=== PATIENT | male | born 1995 | race Caucasian/White ===

== ENCOUNTER → 2020-11-30 | Outpatient (REF) | payer OTHER ==
[~2020-11-30] MED LIST: LEXA1TAB PO; TRAZ-252 PO
== END ==
LOC: M LAB REF 09:27
PROVIDERS: ATTEND Surgery
DX: U07.1 COVID-19 (principal)

== ENCOUNTER 2024-03-09 02:18 | Emergency (ER) | payer OTHER, SELFPAY ==
[~2024-03-09] VITALS: Ht 175.3 cm; Wt 56.8 kg
[2024-03-09 02:27] VITALS: BP 191/105; TEMP 98.4; O2SAT 99
== END 2024-03-09 08:26 | disposition left against medical advice (07) ==
LOC: M ED 02:18 → EDBD 02:18 → M ED 08:26
DX: Z53.21 Procedure and treatment not carried out due to patient leaving prior to being seen by health care provider (principal)

== ENCOUNTER 2024-03-22 01:38 | Emergency (ER) | payer SELFPAY ==
[~2024-03-22] VITALS: Ht 167.6 cm; Wt 73.0 kg
[2024-03-22 01:39] VITALS: BP 141/86; TEMP 97.2; O2SAT 99
== END 2024-03-22 02:35 | disposition left against medical advice (07) ==
LOC: M ED 01:38
DX: Z53.21 Procedure and treatment not carried out due to patient leaving prior to being seen by health care provider (principal)

== ENCOUNTER → 2024-04-06 | Outpatient (CLI) | payer SELFPAY | LOC: M SOG 07:51 | PROVIDERS: ATTEND Physician Assistant | DX: M79.644 Pain in right finger(s) (principal) ==

== ENCOUNTER → 2024-04-13 | Outpatient (CLI) | payer OTHER, SELFPAY ==
[~2024-04-13] MED LIST changes: +CEPH500C PO
== END ==
LOC: M SOG 07:24
PROVIDERS: ATTEND Physician Assistant
DX: M79.644 Pain in right finger(s) (principal)

== ENCOUNTER 2024-04-21 06:11 | Inpatient (IN) | payer OTHER ==
[~2024-04-21] VITALS: Ht 175.3 cm; Wt 77.8 kg
[2024-04-21] VITALS (8 sets, daily range): BP systolic 120–150; BP diastolic 55–83; TEMP 96.7–97.9; O2SAT 97–98
[2024-04-21] MEDS ORDERED: ACETAMINOPHEN 1000MG 100ML IV BAG As Ordered ONE (06:51)
[2024-04-21] MEDS ORDERED: propofoL 200 MG/20 ML VIAL As Ordered ONE (06:51)
[2024-04-21] MEDS ORDERED: LIDOCAINE 2% 100MG/5ML SDV (FOR ANES.) As Ordered ONE (06:51)
[2024-04-21] MEDS ORDERED: dexmedeTOMIDine (4MCG/ML)200MCG/50ML BTL (PRECEDEX) As Ordered ONE (06:51)
[2024-04-21] MEDS ORDERED: ONDANSETRON 4MG 2ML VIAL As Ordered ONE (06:52)
[2024-04-21] MEDS: NS 250 ML IV SCH (07:16)
[2024-04-21] MEDS ORDERED: fentaNYL 100 MCG/2 ML INJECTION As Ordered ONE (08:37)
[2024-04-21] MEDS ORDERED: MIDAZOLAM INJ 2MG/2ML VIAL As Ordered ONE (08:37)
[2024-04-21] MEDS: ceFAZolin 2 GM/D5W 50 ML IV BAG As Ordered ONE (09:54)
[2024-04-21] MEDS: BACITRACIN OINTMENT 30GM TUBE As Ordered ONE (10:00)
[2024-04-21] MEDS ORDERED: ONDANSETRON 4MG 2ML VIAL IV PRN ×2 (10:25→10:30)
[2024-04-21] MEDS ORDERED: SENNA 8.6 MG TAB (SENOKOT) PO PRN (10:25)
[2024-04-21] MEDS ORDERED: oxyCODONE 5MG TAB PO PRN ×2 (10:25→10:30)
[2024-04-21] MEDS ORDERED: IBUPROFEN 600MG TAB PO PRN (10:25)
[2024-04-21] MEDS ORDERED: ACETAMINOPHEN 325 MG TAB PO PRN (10:25)
[2024-04-21] MEDS ORDERED: MORPHINE 4 MG/ML 1ML VIAL IV PRN (10:25)
[2024-04-21] MEDS ORDERED: HYDROmorphone 2 MG TAB PO PRN (10:25)
[2024-04-21] MEDS ORDERED: fentaNYL 100 MCG/2 ML INJECTION IV PRN (10:30)
[2024-04-21] MEDS ORDERED: HOME MED LIST COMPLETE! XX SCH (16:40)
[2024-04-21] MEDS: VANCOMYCIN/WATER FOR INJ 1,000 MG in IV 1 EA IV SCH (17:59)
[2024-04-21] MEDS: diphenhydrAMINE 25MG CAP PO ONE (18:46)
[2024-04-21] MEDS ORDERED: VANCOMYCIN/WATER FOR INJ 1,000 MG in IV 1 EA IV SCH (19:50)
[2024-04-21] MEDS ORDERED: cefTRIAXone SOD 1 GM in DEXTROSE 5% (D5W) ADV/MINI-BAG 50 ML IV SCH (20:10)
[2024-04-21 22:39] LABS: BASO % 0.1 % (0.0-1.0); HEMATOCRIT 35.3 % (42.0-52.0); HEMOGLOBIN 11.4 g/dl (13.5-17.5); LYMPH # 1.1 10^3/uL (1.5-5.0); LYMPH % 7.1 % (24.0-44.0); MEAN CORPUSCULAR HEMOGLOBIN 22.7 pg (27.0-33.0); MEAN CORPUSCULAR HGB CONC 32.3 g/dl (32.0-36.5); MEAN CORPUSCULAR VOLUME 70.2 fl (80.0-96.0); MONO # 0.5 10^3/uL (0.0-0.8); MONO % 3.5 % (2.0-8.0); NEUTROPHILS # 13.5 10^3/uL (1.5-8.5); NEUTROPHILS % 88.6 % (36.0-66.0); PLATELET COUNT, AUTOMATED 376 10^3/uL (150-450); RED BLOOD COUNT 5.03 10^6/uL (4.30-6.10); WHITE BLOOD COUNT 15.2 10^3/uL (4.0-10.0)
[2024-04-21 23:11] LABS: ALBUMIN 3.5 G/DL (3.2-5.2); ALKALINE PHOSPHATASE 65 U/L (40-129); ALT/SGPT 34 U/L (7.0-40); AST/SGOT 14 U/L (<34); BILIRUBIN,TOTAL 0.4 MG/DL (0.3-1.2); BLOOD UREA NITROGEN 15 MG/DL (9-23); CALCIUM LEVEL 9.4 MG/DL (8.5-10.1); CARBON DIOXIDE LEVEL 24 MMOL/L (20-31); CHLORIDE LEVEL 109 MMOL/L (98-107); CREATININE FOR GFR 0.83 MG/DL (0.70-1.30); GLOMERULAR FILTRATION RATE > 60.0 (>60); GLUCOSE, FASTING 145 MG/DL (60-100); POTASSIUM SERUM 4.3 MMOL/L (3.5-5.1); SODIUM LEVEL 139 MMOL/L (136-145); TOTAL PROTEIN 7.1 G/DL (5.7-8.2)
[2024-04-21] MEDS: PIPERACILLIN/TAZOBACTAM SOD 4.5 GM in DEXTROSE 5% (D5W) ADV/MINI-BAG 50 ML IV SCH (23:11)
[2024-04-21] MEDS: diphenhydrAMINE 50MG/ML VIAL IV PRN (23:11)
[2024-04-22] VITALS: BP 142/65; TEMP 98.1; O2SAT 97
[2024-04-22 04:10] VITALS: BP 122/62; TEMP 98.1; O2SAT 97
[2024-04-22 06:31] LABS: HEMATOCRIT 35.6 % (42.0-52.0); HEMOGLOBIN 11.2 g/dl (13.5-17.5); MEAN CORPUSCULAR HGB CONC 31.5 g/dl (32.0-36.5); MEAN CORPUSCULAR VOLUME 69.8 fl (80.0-96.0); PLATELET COUNT, AUTOMATED 347 10^3/uL (150-450)
[2024-04-22 06:50] LABS: C REACTIVE PROTEIN QUANTITATIV < 0.40 MG/DL (<1.0)
[2024-04-22 06:55] LABS: ALBUMIN 3.4 G/DL (3.2-5.2); ALKALINE PHOSPHATASE 61 U/L (40-129); ALT/SGPT 30 U/L (7.0-40); AST/SGOT 13 U/L (<34); BILIRUBIN,TOTAL 0.5 MG/DL (0.3-1.2); BLOOD UREA NITROGEN 13 MG/DL (9-23); CALCIUM LEVEL 9.4 MG/DL (8.5-10.1); CARBON DIOXIDE LEVEL 25 MMOL/L (20-31); CHLORIDE LEVEL 108 MMOL/L (98-107); CREATININE FOR GFR 0.84 MG/DL (0.70-1.30); GLOMERULAR FILTRATION RATE > 60.0 (>60); GLUCOSE, FASTING 115 MG/DL (60-100); POTASSIUM SERUM 4.1 MMOL/L (3.5-5.1); SODIUM LEVEL 139 MMOL/L (136-145); TOTAL PROTEIN 6.7 G/DL (5.7-8.2)
[2024-04-22 08:00] VITALS: BP 131/64; TEMP 97.4; O2SAT 99
[2024-04-22] MEDS: ENOXAPARIN 40MG/0.4ML SYRINGE (J1650 PER 10MG) SC SCH (10:52)
[2024-04-22 12:00] VITALS: BP 146/79; TEMP 97.7; O2SAT 97
[2024-04-22] MEDS: LINEZOLID 600 MG in IV 1 EA IV SCH (12:04)
[2024-04-22] MEDS ORDERED: BOOSTRIX VACCINE (TETANUS/DIPHTH/ACEL. PERTUSSIS) 0.5ML SYR IM ONE (18:20)
[2024-04-22 18:48] LABS: HEPATITIS B SURFACE ANTIBODY POSITIVE (POSITIVE)
[2024-04-22 18:52] LABS: HEPATITIS B SURFACE ANTIGEN NEGATIVE (NEGATIVE)
[2024-04-22 19:21] LABS: HEPATITIS C VIRUS ABY INDEX < 0.02 INDEX (<0.8)
[2024-04-22 20:54] VITALS: BP 132/72; TEMP 96.7
[2024-04-22] MEDS: LINEZOLID 600MG TABLET (ZYVOX) PO SCH (20:55)
[2024-04-23 04:02] VITALS: BP 119/62; TEMP 97; O2SAT 98
[2024-04-23 04:54] VITALS: BP 119/62; TEMP 97; O2SAT 98
[2024-04-23 06:07] LABS: HEMATOCRIT 33.7 % (42.0-52.0); HEMOGLOBIN 10.7 g/dl (13.5-17.5); MEAN CORPUSCULAR HEMOGLOBIN 22.4 pg (27.0-33.0); MEAN CORPUSCULAR HGB CONC 31.8 g/dl (32.0-36.5); MEAN CORPUSCULAR VOLUME 70.6 fl (80.0-96.0); PLATELET COUNT, AUTOMATED 285 10^3/uL (150-450); RED BLOOD COUNT 4.77 10^6/uL (4.30-6.10)
[2024-04-23 06:37] LABS: C REACTIVE PROTEIN QUANTITATIV < 0.40 MG/DL (<1.0)
[2024-04-23 06:42] LABS: ALBUMIN 3.1 G/DL (3.2-5.2); ALKALINE PHOSPHATASE 58 U/L (40-129); ALT/SGPT 28 U/L (7.0-40); AST/SGOT 13 U/L (<34); BILIRUBIN,TOTAL 0.3 MG/DL (0.3-1.2); BLOOD UREA NITROGEN 14 MG/DL (9-23); CARBON DIOXIDE LEVEL 27 MMOL/L (20-31); CHLORIDE LEVEL 111 MMOL/L (98-107); CREATININE FOR GFR 0.99 MG/DL (0.70-1.30); GLOMERULAR FILTRATION RATE > 60.0 (>60); GLUCOSE, FASTING 98 MG/DL (60-100); POTASSIUM SERUM 4.2 MMOL/L (3.5-5.1); SODIUM LEVEL 143 MMOL/L (136-145); TOTAL PROTEIN 6.1 G/DL (5.7-8.2)
[2024-04-23] MEDS ORDERED: BACT800T5 PO ×2 (08:53→14:05)
[2024-04-23 09:07] VITALS: BP 124/86; TEMP 97; O2SAT 98
[2024-04-23 12:00] VITALS: BP 121/80; TEMP 97.2; O2SAT 99
[2024-04-23] MEDS: BOOSTRIX VACCINE (TETANUS/DIPHTH/ACEL. PERTUSSIS) 0.5ML SYR IM ONE (14:58)
== END 2024-04-23 15:10 | disposition home or self-care (01) | DRG 517 ==
LOC: EEVIPCON 06:11 → M OR 06:11 → M MS5PR 11:30
PROVIDERS: ADMIT Orthopaedic Surgery Hand Surgery; ATTEND Student in an Organized Health Care Education/Training Program
PROC: 0PBT0ZZ Excision of Right Finger Phalanx, Open Approach (ICD-10-PCS; principal; 2024-04-21 08:50)
DX: M86.8X8 Other osteomyelitis, other site (principal); F17.200 Nicotine dependence, unspecified, uncomplicated; B95.62 Methicillin resistant Staphylococcus aureus infection as the cause of diseases classified elsewhere

== ENCOUNTER → 2024-05-07 | Outpatient (CLI) | payer OTHER ==
[~2024-05-07] MED LIST changes: +BACT800T5 PO
== END ==
LOC: M SOG 07:53
PROVIDERS: ATTEND Physician Assistant
DX: M79.644 Pain in right finger(s) (principal)